=== PATIENT | male | born 1965 | race Caucasian/White ===

== ENCOUNTER 2020-06-26 15:40 | Emergency (ER) | payer BC, OTHER ==
[~2020-06-26] VITALS: Ht 177 cm; Wt 109.0 kg
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
[2020-06-26 16:30] VITALS: BP 156/99
== END 2020-06-26 16:30 | disposition home or self-care (01) ==
LOC: ER 15:42
DX: S80.01XA Contusion of right knee, initial encounter (principal); W22.11XA Striking against or struck by driver side automobile airbag, initial encounter
CPT/HCPCS: 99282

== ENCOUNTER → 2020-07-12 | Outpatient (CLI) | payer BC ==
--- NOTE | 2020-07-12 10:35 | Diagnostic Imaging Report ---
INDICATION: Osteoarthritis of the bilateral knees. COMPARISON: None available. TECHNIQUE: Six radiographs of the bilateral knees dated 07/12/2020. FINDINGS: LEFT: No acute fracture. Well-corticated ossific density is identified associated with the fibular head. Moderate medial and mild lateral joint space narrowing. Mild tricompartmental osteophytosis. No significant knee joint effusion. The patella is well seated within the trochlea. No suspicious radiopaque foreign body. RIGHT: No acute fracture or dislocation. No destructive osseous process. Moderate medial joint space narrowing. The lateral compartment is well maintained. Mild tricompartmental osteophytosis. No significant joint effusion. The patella is well seated within the trochlea. No suspicious radiopaque foreign body. IMPRESSION: No acute osseous abnormality with mild to moderate degenerative changes, particularly within the medial compartments of the bilateral knees. Chronic appearing fracture versus osteophyte associated with the left fibular head. Dictated by: Dictated on workstation # [id number]
== END ==
LOC: ORTHO 09:48
PROVIDERS: ATTEND Orthopaedic Surgery
DX: M17.0 Bilateral primary osteoarthritis of knee (principal)
CPT/HCPCS: 73562; G0463; 99203

== ENCOUNTER → 2020-08-11 | Outpatient (CLI) | payer BC | LOC: ORTHO 10:20 | PROVIDERS: ATTEND Orthopaedic Surgery | DX: M17.11 Unilateral primary osteoarthritis, right knee (principal); M17.12 Unilateral primary osteoarthritis, left knee | CPT/HCPCS: 20610; G0463 ==